=== PATIENT | female | born 1990 | race Caucasian/White ===

== ENCOUNTER 2024-10-23 08:30 | Outpatient (CLI) | payer BC, SELFPAY ==
--- NOTE | 2024-10-29 15:12 | WPDHOMESLEEP ---
Sleep Study - Home Unattended Date of Study: 10/23/24 Ordering Provider: Darwin Peck DO Interpreting Provider: Samira Du DO Home Sleep Study Type: Watch PAT Height: 1.78 m Weight: 205.931 kg Body Mass Index: 65.1 Neck Circumference (inches): 21 [place]: 5 Reason for Sleep Study Excessive daytime sleepiness Sleep History The patient is a 34-year-old female who had a sleep study ordered by her transformer repairer for evaluation of sleep apnea. The patient admits to excessive daytime sleepiness, loud snoring, and trouble maintaining sleep. The patient denies interruptions in breathing while asleep. She denies choking or gasping at night. She denies having trouble breathing on her back. She does have morning headaches. She does have a dry or sore mouth/throat in the morning. She denies nocturnal heartburn. She denies nocturia. She does have difficulty falling asleep. She does have difficulty returning to sleep if she wakes up throughout the night. She denies any hypnotic or sedative use. She denies feeling anxious about sleep. She does feel tired or sleepy during the day. She does feel tired in the morning. She does have the urge to fall asleep during the day. She denies feeling drowsy while driving. She denies sleep paralysis and cataplexy. In hypnagogic-hypnopompic hallucinations, she denies clenching or grinding her teeth. She denies kicking or jerking her legs excessively. She denies having a restless feeling in her legs. She goes to bed at 9 p.m. on workdays and at 11 p.m. on her days off. It takes her 45 minutes to fall asleep. She gets 6.5 hours of sleep on workdays and 10 hours on her days off. Her sleep is a little more restorative on her days off. She does take planned naps in the afternoon that last 1-2 hours. Her naps are restorative. She denies dream enactment behavior. She denies sleepwalking. She consumes more than 5 caffeinated beverages per day. She denies tobacco and alcohol use. She denies exercising on a regular basis. [facility]LY [facility] Past Medical History Medical History HTN (hypertension) Family History Family History Father Hypertension Heart disease Mother Hypertension Social History Social History Social History: Smoking status: Never smoker Second hand tobacco smoke exposure: No Alcohol intake: current Alcohol use details: Socially Substance use: current Substance use type: marijuana Other substance usage details: Edibles weekend Do You Feel Safe in your Home?: Yes Lack of Transportation: No Lack of Food: Never True Current Housing: I Have Housing Concerned About Future Housing: No Difficulty Paying Gas/Electric Bills: No Difficulty Paying for Meds: No Currently Unemployed: No Education: Bachelor's Degree Living arrangements: with family Occupation/Education: occupation Gender identity (if verbalized by the patient): Female Sexual Orientation (if Verbalized by the Patient): Straight or Heterosexual Medications Home Medications ?Medication ?Instructions ?Recorded ?Confirmed ?Type sertraline 50 mg tablet 50 mg PO DAILY #30 tabs 02/13/24 09/24/24 Rx omeprazole 40 mg capsule,delayed 40 mg PO DAILY #90 caps 08/23/24 09/24/24 Rx release hydrochlorothiazide 50 mg tablet 50 mg PO DAILY #90 tabs 09/24/24 09/24/24 Rx labetalol 300 mg tablet See Rx Instructions .Route 09/25/24 Rx .COMPLEX #180 tabs Sleep Procedure The sleep study was completed using CommonTimeT a technically adequate device with seven channels: peripheral arterial tone, actigraphy, body position, snore, respiratory movement, pulse oximetry, sleep staging, and heart rate. Prior to using the device, the patient received verbal and written instructions for its application and was provided with the help desk phone number for additional telephonic instruction with 24-hour availability of qualified personnel to answer questions. The study was scored using CMS guidelines. Sleep Architecture The total recording time is 7 hrs, 24 min. The total sleep time is 5 hrs, 39 min. Sleep latency is 26 minutes. REM latency is 88 minutes. The patient had 8 episodes of waking. Sleep architecture shows 18.4% deep sleep, 58.4% light sleep, and (as % Total Sleep Time) showed NREM (Light 58.4%; Deep 18.4%), and a 23.1% stage REM. The patient spent 34.8% of total sleep time in the supine position. Sleep efficiency was 76.35. Respiratory Analysis The overall AHI (pAHI 4%:) is 45.2. The overall AHI (pAHI 3%:) is 66.0. The central AHI is 0.4. The AHI was 62.5 in NREM and 77.7 in REM sleep. The AHI was 68.2 in Supine and 60.8 in Non-supine sleep. Percent of Kin Hoover respirations is 0.0. Oximetry Data The oxygen desaturation index (HOANG 4%:) is 44.5. The mean saturation is 93%, and the lowest saturation is 69%. Time spent with saturation < 88% is 30.1 minutes. Snoring Profile Snoring average intensity is 55 dB. The patient snored above 45 decibels for 265.9 minutes, 78.4% of sleep time. Cardiac Profile The average pulse rate is 72 beats per minutes. The lowest pulse rate is 53 bpm. The highest pulse rate reported is 96 bpm. Atrial fibrillation was not detected. Premature beats occur 0.2 per minute. Assessment and Plan Assessment and Plan (1) VAMSI (obstructive sleep apnea): Code(s): G47.33 - Obstructive sleep apnea (adult) (pediatric) Status: Acute Assessment and Plan: The patient had an overall AHI of 45.2 with desaturation down to 69%. This is consistent with severe sleep apnea. Due to the severity of the patient's sleep apnea and the amount of time she spent with her SpO2<88%, AutoPAP is not an appropriate treatment option. I recommend that the patient have a CPAP Titration with the use of a hypnotic to ensure we obtain enough sleep data and find an optimal pressure setting. Data The data obtained during this sleep study is adequate for interpretation. Certification This sleep study has been reviewed by a board certified sleep medicine physician.
[2024-10-29 15:13] VITALS: BMI 65.1
== END 2024-10-24 12:38 | disposition home or self-care (01) ==
LOC: ANHCSM 08:32
PROVIDERS: PCP Family Medicine; Visit Provider Internal Medicine Cardiovascular Disease
DX: G47.33 Obstructive sleep apnea (adult) (pediatric) (principal); G47.10 Hypersomnia, unspecified
CPT/HCPCS: 95800

== ENCOUNTER 2025-02-13 07:48 | Outpatient (CLI) | payer BC, SELFPAY ==
--- OUTSIDE RECORDS SUMMARY | 2025-02-13 08:00 | XMS_ITS | Continuity of Care Document ---
Author Organization [facility] Address [address] [place] [address] Problems Unknown Problems Results No Results Allergies, adverse reactions, alerts No known allergies and adverse reactions Medications No administered medications reported Vital Signs Date Vital Result Comment 09/14/2022 Body Height [id number] m Body Weight 195.52009906221 kg Body Mass Index 59.97 kg/m2 Social History No smoking Hx information available
--- NOTE | 2025-03-04 08:39 | WPDSLEEPSTUD ---
Sleep Study Date of Study: 02/13/25 Ordering Provider: González Bender APRN Interpreting Physician: Dejah Vera MD Sleep Study Type: CPAP Titration Height: 1.8 m Weight: 198.673 kg Body Mass Index: 61.0 Neck Circumference (inches): 21 [place]: 5 Reason for Sleep Study * 10/23/2024 home sleep test showing severe obstructive sleep apnea, AHI 45.2 with desaturation to 69% and 30.1 minutes spent below 88%. She returns for a CPAP titration. Sleep History This history is from her 10/23/2024 home sleep test showing severe obstructive sleep apnea, AHI 45.2 with desaturation to 69% and 30.1 minutes spent below 88%. The patient is a 34-year-old female who had a sleep study ordered by her interior decorator for evaluation of sleep apnea. The patient admits to excessive daytime sleepiness, loud snoring, and trouble maintaining sleep. The patient denies interruptions in breathing while asleep. She denies choking or gasping at night. She denies having trouble breathing on her back. She does have morning headaches. She does have a dry or sore mouth/throat in the morning. She denies nocturnal heartburn. She denies nocturia. She does have difficulty falling asleep. She does have difficulty returning to sleep if she wakes up throughout the night. She denies any hypnotic or sedative use. She denies feeling anxious about sleep. She does feel tired or sleepy during the day. She does feel tired in the morning. She does have the urge to fall asleep during the day. She denies feeling drowsy while driving. She denies sleep paralysis and cataplexy. In hypnagogic-hypnopompic hallucinations, she denies clenching or grinding her teeth. She denies kicking or jerking her legs excessively. She denies having a restless feeling in her legs. She goes to bed at 9 p.m. on workdays and at 11 p.m. on her days off. It takes her 45 minutes to fall asleep. She gets 6.5 hours of sleep on workdays and 10 hours on her days off. Her sleep is a little more restorative on her days off. She does take planned naps in the afternoon that last 1-2 hours. Her naps are restorative. She denies dream enactment behavior. She denies sleepwalking. She consumes more than 5 caffeinated beverages per day. She denies tobacco and alcohol use. She denies exercising on a regular basis. [facility] Past Medical History Medical History (Updated 03/04/25 @ 08:47 by Dejah Vera MD) MDD (major depressive disorder) VAMSI (obstructive sleep apnea) HTN (hypertension) Family History Family History Father Hypertension Heart disease Mother Hypertension Social History Social History Social History: Smoking status: Never smoker Second hand tobacco smoke exposure: No Alcohol intake: current Alcohol use details: Socially Substance use: current Substance use type: marijuana Other substance usage details: Edibles weekend Do You Feel Safe in your Home?: Yes Lack of Transportation: No Lack of Food: Never True Current Housing: I Have Housing Concerned About Future Housing: No Difficulty Paying Gas/Electric Bills: No Difficulty Paying for Meds: No Currently Unemployed: No Education: Bachelor's Degree Living arrangements: with family Occupation/Education: occupation Gender identity (if verbalized by the patient): Female Sexual Orientation (if Verbalized by the Patient): Straight or Heterosexual Medications Home Medications ?Medication ?Instructions ?Recorded ?Confirmed ?Type sertraline 50 mg tablet 50 mg PO DAILY #30 tabs 02/13/24 12/31/24 Rx omeprazole 40 mg capsule,delayed 40 mg PO DAILY #90 caps 08/23/24 12/31/24 Rx release hydrochlorothiazide 50 mg tablet 50 mg PO DAILY #90 tabs 09/24/24 12/31/24 Rx labetalol 400 mg tablet 400 mg PO Q12H #180 tabs 11/14/24 12/31/24 Rx eszopiclone 2 mg tablet 2 mg PO ONCE #1 tablet 12/31/24 12/31/24 Rx Zepbound 2.5 mg/0.5 mL 2.5 mg (0.5 mL) subcut WEEKLY #2 mL 02/06/25 Rx subcutaneous pen injector (tirzepatide (weight loss)) Sleep Procedure A full night polysomnogram using the [employer] multi-channel system recorded the standard physiologic parameters including EEG, EOG, submentalis EMG, anterior tibialis EMG, EKG, body position, nasal and oral airflow using PAP device flow signal. Respiratory parameters of chest and abdominal movements were recorded with Respiratory Inductance Plethysmography belts. Oxygen saturation was recorded by pulse oximetry. Video monitoring was also performed. Sleep stages, periodic limb movements, and EEG arousals were scored in 30 second epochs according to the criteria of the AASM Scoring Manual. The Apnea-Hypopnea Index was calculated using CMS guidelines for definition of hypopnea with 4% O2 desaturations while scoring respiratory events. The patient self-administered Lunesta 2 mg at the beginning of the study, selected a medium ResMed AirTouch F20 fullface mask, could not tolerate the initial pressure of CPAP 5 so this was increased to 7 for comfort at the beginning of the study. CPAP was titrated to 8 cm, 9, 10, 11 and final pressure was 13 cm. At this pressure, she spent 81.5 minutes in bed, 32 minutes awake, 30 minutes in non-REM and 19.5 minutes in REM. Sleep efficiency was 60.7% with a residual apnea-hypopnea index is 1.2. Lowest saturation was 88%. CPAP 11 appeared more favorable, with the patient spending 161.5 minutes in bed, 2.5 minutes awake, 120.5 minutes in non-REM and 38.5 minutes in REM. Sleep efficiency was 98.5%. The residual apnea-hypopnea index was 3.0 with a minimum saturation of 87%. Sleep Architecture The total recording time was 491.6 minutes. The total sleep time was 385.5 minutes. Sleep latency was 29.0 minutes. REM latency was 165.5 minutes. Sleep efficiency was 78.4%. The patient had 41 awakenings for an awakening index of 6.4. Wake after Sleep Onset time was 77.0 minutes. The patient spent 47.0 minutes, 12.2% of total sleep time in Stage N1. The patient spent 110.5 minutes, 28.7% in Stage N2. The patient spent 162.0 minutes, 42.0% in Stage N3. The patient spent 66.0 minutes, 17.1% in Stage REM. Respiratory Analysis The patient had 8 hypopneas, no obstructive apneas, no mixed apneas, and 2 central apneas for an overall Apnea Hypopnea Index of 1.6 events per hour. The REM Apnea Hypopnea Index was 8.2. The NREM Apnea Hypopnea Index was 0.2. The patient had a Central Apnea Hypopnea Index of 0.3. There were no Respiratory Effort Related Arousals.. The Respiratory Disturbance Index is 3.4 events per hour. There was no evidence of Kin-Hoover Respirations. Arousals There were 104 total arousals for an arousal index of 16.2. There were 55 spontaneous arousals for an index of 8.6. There were 4 arousals due to respiratory events for an index of 0.6. There were 5 arousals due to periodic limb movements for an index of 0.8. There were 47 arousals due to isolated limb movements for an index of 7.3. Periodic Limb Movements The patient had 136 isolated limb movements with an index of 21.2. The patient had 13 periodic limb movements with index of 2.0. Patient had a total of 149 limb movements with a total limb movement index of 23.2. Oximetry Data The patient had an average oxygen saturation of 93.1% in sleep with a minimum oxygen saturation of 87% and a maximum oxygen saturation of 97%. The patient had 9 oxygen desaturations that were 4% or greater resulting in an Oxygen Desaturation Index of 1.4. The patient spent 0.6 minutes, 0.1%of total sleep time with an oxygen saturation below 88%. Snoring Profile During titration, snoring was present through most of the night. At the optimal pressure, snoring was minimal. Cardiac Profile The EKG showed normal sinus rhythm. The patient had an average pulse rate of 67.3 bpm with a minimum pulse rate of 54 bpm and a maximum pulse rate of 89 bpm. No arrhythmias noted. EEG Profile Unremarkable, no evidence of seizures. Assessment and Plan Assessment and Plan (1) VAMSI (obstructive sleep apnea): Code(s): G47.33 - Obstructive sleep apnea (adult) (pediatric) Status: Acute Assessment and Plan: This full night CPAP titration on 02/13/2025 shows excellent response to therapy with an optimal pressure of CPAP 11 cm using a medium ResMed AirTouch F20 fullface mask with heated humidity. At CPAP 11 cm, the patient spent 161.5 minutes in bed, 2.5 minutes awake, 120.5 minutes in non-REM and 38.5 minutes in REM. Sleep efficiency was 98.5%. The residual apnea-hypopnea index was 3.0 with a minimum saturation of 87%. REM occurred in the left lateral position. Patient had very little supine sleep during the entire night so it is possible during supine sleep she may need a higher pressure however at 13 cm her sleep efficiency was really poor. The patient should be prescribed this ResMed equipment with CPAP 11 cm as well as tubing, filters and reservoir. This should be used with all episodes of sleep. Compliance should be reviewed within 31-90 days of starting therapy for usage greater than 4 hours per night greater than 70% of the nights. The patient should be asked about symptoms such as excessive daytime sleepiness, quality of sleep, decreased nocturia, increased mental functioning such as memory, mood, and concentration. She had frequent kicking throughout the night however these were not periodic limb movements, there were isolated limb movements and they did not cause arousal. BMI is 61. Weight management is advised. Clinical data suggests that weight loss of 10% can reduce the severity of respiratory events and snoring and improve AHI by as much as 25%. Data The data obtained during this sleep study is adequate for interpretation. Certification This sleep study has been reviewed by a board certified sleep medicine physician.
[2025-03-04 08:41] VITALS: BMI 61.0
== END 2025-02-14 06:46 | disposition home or self-care (01) ==
LOC: ANHCSM 07:50
PROVIDERS: Visit Provider Nurse Practitioner Family
DX: G47.33 Obstructive sleep apnea (adult) (pediatric) (principal)
CPT/HCPCS: 95811